=== PATIENT | male | born 2000 | race Two or more races ===

== ENCOUNTER 2025-04-19 08:23 | Outpatient (AMB) | payer OTHER, SELFPAY ==
--- NOTE | 2025-04-19 13:06 | MHC.OFFVISWM ---
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: Details: Start time: 1.03pm, End time: 1.53pm ?I spent 45 minutes speaking with the patient on the phone plus an additional 5 minutes reviewing and updating records for a total of 50 minutes HPI Comments Details: Previous weight loss efforts: self diet and exercise Wakes up: 7am, Sleeps: 10pm Breakfast: 9am (oatmeal, fruit salad, cereal) Lunch: 12-2pm (rice, beans, chicken, squash, plantains) Dinner: 5-7pm (same as lunch) Snacks: 4pm (fruit: banana), 7-8pm (crackers, cheese) Exercise: Home stationary bike (no calorie tracking) Beverages: Coffee: 2/wk, Tea: (1-2 cups/d plain), Soda: 1/wk or less, Juice: (2/wk, home made juice), ETOH: none PFSH Medical History (Updated 04/19/25 @ 13:12 by Srinath Schneider MD) Depression Diabetes insipidus Gout Hypothyroidism Morbid obesity Surgical History (Updated 04/01/25 @ 10:58 by Karolina Garcia CMA) Hx of eye surgery Family History (Updated 04/01/25 @ 10:08 by Karolina Garcia CMA) Mother No problems noted. Father Family history unknown Social History (Updated 04/01/25 @ 10:08 by Karolina Garcia CMA) Alcohol intake: never Patient Tobacco Use Status: Never used Tobacco Physical Exam Vital Signs: BMI result Body Mass Index 51.5 Telehealth Telehealth Telehealth Platform: Telephone Location of provider rendering services: practice address Location of patient: address on file Patient Identification confirmed using: Name, : Yes Telehealth method: voice only Patient verbally consented to treatment: Yes Patient verbally consented to billing insurance company: Yes Patient informed of any privacy concerns related to visit: Yes Minutes spent on Phone/Video with Pt.: 50 Assessment & Plan Assessment & Plan (1) Morbid obesity: Code(s): E66.01 - Morbid (severe) obesity due to excess calories Category: Medical Plan: 1.? Plan for lap sleeve gastrectomy. If diaphragmatic or ventral hernias are present at time of surgery, these will be repaired laparoscopically as well. I emphasized the importance of close follow-up, adherence to instructions and good communication. The surgery does not replace the need to change your lifestlyle which is the cause of the obesity problem. The surgery provides the motivation to try again to change your lifestyle, it reduces the appetite and make the transition to a better lifestyle easier and doubles the amount of weight you would lose compared to doing the lifestyle change without the surgery. You will need to be on a liquid diet with protein shakes for 2 weeks before surgery to maximize weight loss and boost your nutritional status to recover better from surgery and also for the first two weeks after surgery to let the stomach heal before we introduce other foods. After the first 2 weeks we will introduce protein bars and soft foods like scrambled eggs, cottage cheese and yogurt and after the 6th week will introduce meat, fish and cooked vegetables in small amounts. Over time you should be able to eat everything in small amounts. Side effects like nausea, vomiting, heartburn or abdominal pain are not common in the practice unless you are not following in the practice. This operation requires lifetime commitment to following in our practice and communication with me. You will much less weight and experience side effects if you don?t communicate or not following in the practice. Complications are rare and in our practice is about 1/10 of the national average. However, you can develop bleeding that may require transfusion (hasn?t happened for year in the practice), you may from complications (we did not have any deaths in the practice) and infections. Infections are usually a result of breakdown in communication or not understanding or following directions correctly. They are difficult to treat, they can happen during the first 6 weeks, they may require to be in the hospital for weeks or even months, not being able to eat by mouth and you may have drains and surgeries to try and correct the issue. Other risks and complications include possible conversion to an open procedure, leaks, small bowel obstruction, blood clots, cardiac, or pulmonary complications, as terminal operations supervisor complications such as ulcers, insufficient weight loss and vitamin deficiencies. 2. Nutritional counseling. Start with one premade PREMIER protein (buy at [employer] or [employer]) shake (8oz of Premier NOT the whole bottle) at 8am-10am, one protein bar (Fit Crunch protein bar, buy at [employer], or [employer]) at 11am-1pm, another premade PREMIER protein shake (mix 4oz of Premier mixed with 4oz low fat unsweetened almond milk each) at 2pm-4pm, dinner at 5pm (12 forks of protein and 12 forks of salad/vegetables) and another Fit Crunch protein bar at 7pm-9pm. So you do 2 protein shakes, 2 protein bars and one meal per day. Meal to include lean meat (beef, fish, pork, turkey, chicken), or Frisian yogurt, or egg whites, or beans with a salad with olive oil and fruits (berries, pears, apples, kiwi). Avoid salt, breads, potatoes, rice, pasta, desserts. 3. Each shake would be drunk slowly, like coffee in a period of 2 hours. 4. Cut each bar in 4 pieces and eat each piece in 30min ?to make each bar last 2 hours. 5. I emphasized the importance of measuring accurately the food portion and measure it when serving the food in plate 6. The meal portions include 12 full-size forks of meat and 12 full-size forks of salad. You always eat the meat portion but you can replace up to 6 forks for salad/vegetables with rice, potatoes or pasta, or a fruit ?if you like. The less you do it the better weight loss will be. 7. One full-size fork is what it can be scooped on the fork without falling aside and not what can be bit with the fork. Use regular forks like those you find in a typical restaurant. 8.? Please buy the body composition scale we discussed and send me weight measurements as soon as possible and then once a week. Always include your diet and exercise plan. 9. Start walking outside daily, tracking calories with a goal of 300 calories per day, daily. Goal is to burn 2000 calories per week on exercise, which means either 300 calories daily, or 400 calories 5 days per week, or 500 calories 4 days per week, or 650 calories 3 days per week. 10. The best choice would be to purchase a stationary bike, elliptical or treadmill at home that can track calories. Let me know if you do so I can give you an exercise plan. 11. Goal is to lose at least 1.5-2lbs per week 12. Goal to lose 10% of your weight before surgery, which is about 30lbs. Ultimate weight goal: 279lbs before surgery 13. Please follow the diet plan exactly without any change. If you don't like something about the plan or you feel hungry you need to communicate with me so I can help you revise the plan. You should not change the plan yourself 14. To be scheduled for EGD to assess the stomach's anatomy. The possibility of biopsies was discussed. Patient needs to avoid use of NSAIDs and aspirin for 1 week prior to EGD. You must be on liquids only the day before your endoscopy. Risks of perforation and bleeding was discussed with the patient. This will be an outpatient procedure with IV sedation. Orders: Orders Insulin Today E03.9 - Hypothyroidism, unspecified, E23.2 - Diabetes insipidus, E66.01 - Morbid (severe) obesity due to excess calories, M10.9 - Gout, unspecified H Pylori Breath Test Today E03.9 - Hypothyroidism, unspecified, E23.2 - Diabetes insipidus, E66.01 - Morbid (severe) obesity due to excess calories, M10.9 - Gout, unspecified Complete Blood Count Auto Diff Today E03.9 - Hypothyroidism, unspecified, E23.2 - Diabetes insipidus, E66.01 - Morbid (severe) obesity due to excess calories, M10.9 - Gout, unspecified IRON PROFILE Today E03.9 - Hypothyroidism, unspecified, E23.2 - Diabetes insipidus, E66.01 - Morbid (severe) obesity due to excess calories, M10.9 - Gout, unspecified Comprehensive Met. Panel Today E03.9 - Hypothyroidism, unspecified, E23.2 - Diabetes insipidus, E66.01 - Morbid (severe) obesity due to excess calories, M10.9 - Gout, unspecified US abdomen comp w elastography Today E03.9 - Hypothyroidism, unspecified, E23.2 - Diabetes insipidus, E66.01 - Morbid (severe) obesity due to excess calories, M10.9 - Gout, unspecified XR chest 2V Today E03.9 - Hypothyroidism, unspecified, E23.2 - Diabetes insipidus, E66.01 - Morbid (severe) obesity due to excess calories, M10.9 - Gout, unspecified FL upper GI w air Today E03.9 - Hypothyroidism, unspecified, E23.2 - Diabetes insipidus, E66.01 - Morbid (severe) obesity due to excess calories, M10.9 - Gout, unspecified Hemoglobin A1c Today E03.9 - Hypothyroidism, unspecified, E23.2 - Diabetes insipidus, E66.01 - Morbid (severe) obesity due to excess calories, M10.9 - Gout, unspecified Lipid Panel Today E03.9 - Hypothyroidism, unspecified, E23.2 - Diabetes insipidus, E66.01 - Morbid (severe) obesity due to excess calories, M10.9 - Gout, unspecified Vitamin B12 and Folate Today E03.9 - Hypothyroidism, unspecified, E23.2 - Diabetes insipidus, E66.01 - Morbid (severe) obesity due to excess calories, M10.9 - Gout, unspecified Zinc Today E03.9 - Hypothyroidism, unspecified, E23.2 - Diabetes insipidus, E66.01 - Morbid (severe) obesity due to excess calories, M10.9 - Gout, unspecified C Reactive Protein Today E03.9 - Hypothyroidism, unspecified, E23.2 - Diabetes insipidus, E66.01 - Morbid (severe) obesity due to excess calories, M10.9 - Gout, unspecified Vitamin B1 Today E03.9 - Hypothyroidism, unspecified, E23.2 - Diabetes insipidus, E66.01 - Morbid (severe) obesity due to excess calories, M10.9 - Gout, unspecified Vitamin A Today E03.9 - Hypothyroidism, unspecified, E23.2 - Diabetes insipidus, E66.01 - Morbid (severe) obesity due to excess calories, M10.9 - Gout, unspecified TSH reflex Free T4 Today E03.9 - Hypothyroidism, unspecified, E23.2 - Diabetes insipidus, E66.01 - Morbid (severe) obesity due to excess calories, M10.9 - Gout, unspecified Ferritin Today E03.9 - Hypothyroidism, unspecified, E23.2 - Diabetes insipidus, E66.01 - Morbid (severe) obesity due to excess calories, M10.9 - Gout, unspecified Vitamin D 25-OH Total Today E03.9 - Hypothyroidism, unspecified, E23.2 - Diabetes insipidus, E66.01 - Morbid (severe) obesity due to excess calories, M10.9 - Gout, unspecified ECG 12 lead EKG Today E03.9 - Hypothyroidism, unspecified, E23.2 - Diabetes insipidus, E66.01 - Morbid (severe) obesity due to excess calories, M10.9 - Gout, unspecified Referrals Behavioral Health Referral E03.9 - Hypothyroidism, unspecified, E23.2 - Diabetes insipidus, E66.01 - Morbid (severe) obesity due to excess calories, M10.9 - Gout, unspecified Nutrition/Dietitian Referral E03.9 - Hypothyroidism, unspecified, E23.2 - Diabetes insipidus, E66.01 - Morbid (severe) obesity due to excess calories, M10.9 - Gout, unspecified
[2025-04-19 13:19] VITALS: BMI 51.5
== END 2025-04-19 13:53 | disposition home or self-care (01) ==
LOC: HO.HBS 08:23
PROVIDERS: PCP Family Medicine; Visit Provider Surgery
DX: E66.01 Morbid (severe) obesity due to excess calories (principal)
CPT/HCPCS: 99204

== ENCOUNTER 2025-05-02 07:35 | Outpatient (REF) | payer OTHER, SELFPAY ==
--- NOTE | ~2025-05-02 | XR_ITS ---
EXAMINATION: XR CHEST 2 VIEWS HISTORY: E66.01 - Morbid (severe) obesity due to excess calories COMPARISON: There are no prior studies available for comparison. FINDINGS: PA and lateral views of the chest are submitted. The lungs are expanded and clear. There is no pleural effusion, pneumothorax, or pulmonary vascular congestion. The heart is normal in size. The bones are intact. XR/XR chest 2V IMPRESSION: Clear lungs. Electronically signed by: Zeb Mercer MD 05/02/2025 08:26 AM EDT
--- NOTE | 2025-05-02 07:44 | ECG_ITS ---
Test Reason : e66.01 Blood Pressure : */* mmHG Vent. Rate : 101 BPM Atrial Rate : 101 BPM P-R Int : 140 ms QRS Dur : 82 ms QT Int : 334 ms P-R-T Axes : 30 5 57 degrees QTcB Int : 433 ms Sinus tachycardia Inferior infarct , age undetermined Abnormal ECG No previous ECGs available Referred By: Srinath Schneider Electronically Signed By: MINGO CARRASCO MD
[2025-05-02 08:46] LABS: Hematocrit 51.3 % (42.0-52.0); Hemoglobin 16.1 g/dl (14.0-18.0); Imm Gran Abs Auto 0.04 X10*3/uL (0.00-0.03); Imm Gran Pct Auto 0.4 % (0.0-0.4); Lymphocytes Absolute Auto 5.7 X10*3/uL (1.2-4.9); MANUAL DIFF FLAG SCAN; Mean Corpuscular HGB Conc 31.4 g/dl (31.0-36.0); Mean Corpuscular Hemoglobin 28.9 pg (27.0-33.0); Mean Corpuscular Volume 91.9 fL (80.0-98.0); NRBC Abs Auto 0.000 X10*3/uL (0.0-0.012); NRBC Pct Auto 0.0 /100WBC (0.0-0.2); Platelet Count 369 X10*3/uL (160-400); Red Blood Count 5.58 X10*6/uL (4.60-5.80); SCAN SMEAR FLAG 1; White Blood Count 9.8 X10*3/uL (4.8-10.8)
[2025-05-02 09:20] LABS: Albumin Level 4.2 g/dL (3.5-5.0); Alkaline Phosphatase 113 U/L (39-117); Anion Gap 18 (12-20); Aspartate Amino Transferase 61 U/L (5-37); Blood Urea Nitrogen 12 mg/dL (9-16); Calcium 10.2 mg/dL (8.4-10.2); Carbon Dioxide 22 mmol/L (22-29); Chloride 115 mmol/L (96-108); Cholesterol 306 mg/dL (<200); Estimated Glomerular Filt Rate > 60; HDL Cholesterol 30 mg/dL (>40); Iron 73 mcg/dL (45-160); Percent Iron Saturation 21 % (15-50); Potassium 4.0 mmol/L (3.3-5.1); Sodium 151 mmol/L (135-145); Total Iron Binding Capacity 343 mcg/dL (228-428); Total Protein 7.7 g/dL (6.5-8.0); Triglycerides 1175 mg/dL (<150); Unsaturated Iron Binding 270 ug/dL
[2025-05-02 09:36] LABS: Alanine Aminotransferase 56 U/L (0-40)
[2025-05-02 09:47] LABS: Ferritin 149 ng/mL (20-250)
[2025-05-02 09:51] LABS: Folate 12.0 ng/mL (> or = 4.0); Vitamin B12 360 pg/mL (200-900)
[2025-05-02 10:24] LABS: Free T4 (Free Thyroxine) 0.60 ng/dL (0.71-1.85)
== END 2025-05-02 07:36 | disposition home or self-care (01) ==
LOC: HO.XRAY 07:35
PROVIDERS: Visit Provider Surgery
DX: E66.01 Morbid (severe) obesity due to excess calories (principal); E03.9 Hypothyroidism, unspecified; E23.2 Diabetes insipidus; M10.9 Gout, unspecified
CPT/HCPCS: 36415; 71046; 80053; 80061; 82306; 82607; 82728; 82746; 83036; 83525; 83540; 84425; 84439; 84443; 84590; 84630; 85025; 86140; 93005

== ENCOUNTER → 2025-05-02 07:44 | Outpatient (BNV) | payer OTHER, SELFPAY | PROVIDERS: Visit Provider Internal Medicine Cardiovascular Disease | DX: R00.0 Tachycardia, unspecified (principal) | CPT/HCPCS: 93010 ==

== ENCOUNTER → 2025-05-02 08:12 | Outpatient (BNV) | payer OTHER, SELFPAY | PROVIDERS: Visit Provider Radiology Diagnostic Radiology | DX: E66.01 Morbid (severe) obesity due to excess calories (principal); Z68.43 Body mass index [BMI] 50.0-59.9, adult | CPT/HCPCS: 71046 ==

== ENCOUNTER 2025-06-18 07:28 | Day surgery (SDC) | payer OTHER, SELFPAY ==
--- OUTSIDE RECORDS SUMMARY | 2025-05-01 23:59 | XMS_ITS | Continuity of Care Document ---
Author Organization [facility] Address [address] [place] [address]- Care Team Providers Care Surgical Garment Inspector Name Role Phone Bette PEREZ, John Primary Care Physician [phone] [id number] Date(s): 04/01/25 - 05/01/[address] [address]- Encounter Type: Triage Allergies, Adverse Reactions, Alerts No Known Allergies Immunizations Given and Recorded Vaccine Date Status Refusal Reason [id number] 12y+ bivalent booster vax 05/22/22 Recorded SARS-CoV-2 mRNA ([id number]) vax 12/11/21 Given SARS-CoV-2 (COVID-19) mRNA BNT-162b2 vac 01/06/21 Recorded SARS-CoV-2 (COVID-19) mRNA BNT-162b2 vac 12/16/20 Recorded influenza virus vaccine, inactivated 07/03/18 Give n influenza virus vaccine, inactivated 05/18/17 Give n influenza virus vaccine, inactivated 05/19/16 Give n influenza virus vaccine, inactivated 03/27/15 Give n influenza virus vaccine, inactivated 03/06/14 Give n influenza virus vaccine, inactivated 05/01/13 Give n Meningococcal Polysaccharide Vaccine 05/19/16 Give n Human Papillomavirus Vaccine 03/06/14 Given Human Papillomavirus Vaccine 05/01/13 Given Human Papillomavirus Vaccine 1 02/17/12 Given Adacel (Tdap) (oldterm) 2 06/26/10 Given Menactra (oldterm) 3 06/26/10 Given Influenza Inactive (IM) (oldterm) 4 03/31/10 Given 1Admin Note: vis given 2Admin Note: vis 05/28/08 3Admin Note: vis 08/07/07 4Admin Note: vis Medications acetaminophen 500 mg oral tablet 2 tablet = 1,000 mg, By Mouth, Every 6 hours, PRN for pain, 5 Refills, Maintenance, 08/03/22 9:35:00AM EST, Tablet, Partial fill upon patient request if the prescription is for a schedule II opioid drug. Start Date: 08/03/22 Status: Ordered Medication Dispense Status: Completed Total Allowed Fills: 1 Fills Dispensed: 0 Adult Extra Large Home blood pressure monitor Adult Extra Large Home blood pressure monitor, See Instructions, # 1 each, Refills 0, Tot. Refills 0, Maintenance, To use for home blood pressure monitoring once a day, 2-3x a week. Dx: Stage 1 Hypertension,ICD I10 Duration of Use: 89 years BMI 53.99. Fax to [facility] [phone], 06/28/22 2:00:00 PM EST, Supply Start Date: 06/28/22 Status: Ordered Medication Dispense Status: Completed Quantity: 1.0 Unit: each Total Allowed Fills: 1 Fills Dispensed: 0 allopurinol 100 mg oral tablet 100 mg, 1, tablet, By Mouth, Daily, Follow up with primary care provider for dosing titration, # 90tablet, Refills 0, Tot. Refills 0, Maintenance, 04/09/25 2:16:00 PM EDT, Route to Pharmacy Electronically, [facility] #[id number], Partial fill upon patient request if the prescription is for a schedule II opioid drug., 165, cm, 03/14/25 11:45:00 EDT, Height, 144.794, kg, 03/01/25 17:17:00 EDT,Dry Weight Start Date: 04/09/25 Stop Date: 07/08/25 Status: Ordered Medication Dispense Status: Completed Quantity: 90.0 Unit: tablet Total Allowed Fills: 1 Fills Dispensed: 0 colchicine 0.6 mg oral tablet 1, tablet, By Mouth, 2 times a day, # 6 tablet, Refills 2, Tot. Refills 2, Maintenance, 04/09/25 2:17:00 PM EDT, Route to Pharmacy Electronically, [facility] #[id number], 165, cm, 03/14/25 11:45:00 EDT, Height, 144.794, kg, 03/01/25 17:17:00 EDT, Dry Weight Start Date: 04/09/25 Stop Date: 04/18/25 Status: Ordered Medication Dispense Status: Completed Quantity: 6.0 Unit: tablet Total Allowed Fills: 3 Fills Dispensed: 0 Compression Stockings See Instructions, # 3 pack/packet, Refills 3, Tot. Refills 3, Maintenance, surgical, calf length 20-30 mm Hg DX:I87.2 Venous insufficiency, 11/26/21 11:17:00 AM EDT, Compound Start Date: 11/26/21 Status: Ordered Medication Dispense Status: Completed Quantity: 3.0 Unit: pack/packet Total Allowed Fills: 4 Fills Dispensed: 0 desmopressin 0.1 mg oral tablet See Instructions, take 1.5 tablets in AM and 1.5 tablet in the evening, # 90 tablet, 6 Refills, Maintenance, 03/14/25 12:18:00 PM EDT, [facility] #[id number], Partial fill upon patient request if the prescription is for a schedule II opioid drug., 165, cm, 03/14/25 11:45:00 EDT, Height, 144.794,kg, 03/01/25 17:17:00 EDT, Dry Weight Start Date: 03/14/25 Status: Ordered Medication Dispense Status: Completed Quantity: 90.0 Unit: tablet Total Allowed Fills: 7 Fills Dispensed: 0 levothyroxine 125 mcg (0.125 mg) oral tablet 1 tablet = 125 mcg, By Mouth, Daily, # 30 tablet, 6 Refills, Maintenance, 03/14/25 12:18:00 PM EDT, Tablet, [facility] #[id number], Partial fill upon patient request if the prescription is for a schedule II opioid drug., 165, cm, 03/14/25 11:45:00 EDT, Height, 144.794, kg, 03/01/25 17:17:00 EDT,Dry Weight Start Date: 03/14/25 Status: Ordered Medication Dispense Status: Completed Quantity: 30.0 Unit: tablet Total Allowed Fills: 7 Fills Dispensed: 0 Shower Bar See Instructions, # 1 each, Maintenance, To use when showering to avoid falls Dx: Bilateral plantarfasciitis ICD M72.2, Unsteadiness on feet ICD R26. 81 Duration of use: 89 years Height 165 cm (65 inches) Weight 147 kg (324 lbs) BMI 53.99 Fax to [facility] [address] [place] [address], 06/28/22 1:53:00 PM EST, Supply Start Date: 06/28/22 Status: Ordered Medication Dispense Status: Completed Quantity: 1.0 Unit: each Total Allowed Fills: 1 Fills Dispensed: 0 Shower Chair See Instructions, # 1 each, Maintenance, To use when showering to avoid falls Dx: Bilateral plantarfasciitis ICD M72.2, Unsteadiness on feet ICD R26. 81 Duration of use: 89 years Height 165 cm (65 inches) Weight 147 kg (324 lbs) BMI 53.99 Fax to [facility] [address] [place] [address], 06/28/22 1:53:00 PM EST, Supply Start Date: 06/28/22 Status: Ordered Medication Dispense Status: Completed Quantity: 1.0 Unit: each Total Allowed Fills: 1 Fills Dispensed: 0 Shower Mat Shower Mat, See Instructions, # 1 each, Refills 0, Tot. Refills 0, Maintenance, To use when showering to avoid falls Dx: Bilateral plantar fasciitis ICD M72.2, Unsteadiness on feet ICD R26. 81 Duration of use: 89 years Height 165 cm (65 inches) Weight 147 kg (324 lbs) BMI 53.99 Fax to [facility] [address] [place] [address], 06/28/22 1:53:00 PMEST, Supply Start Date: 06/28/22 Status: Ordered Medication Dispense Status: Completed Quantity: 1.0 Unit: each Total Allowed Fills: 1 Fills Dispensed: 0 Tall Adult Adjustable Crutches Tall Adult Adjustable Crutches, See Instructions, # 2 each, Refills 1, Tot. Refills 1, Maintenance,To use for stability when walking with severe chronic pain. Dx: Bilateral plantar fasciitis (ICD M72.2) and chronic low back pain (ICD M54.50) Duration of use: 89 years Height 165 cm (65 inches) Weight 147 kg (324 lbs) BMI 53.99 Fax to [facility] [address] [place] [id number], 12/13/23 11:56:00 AM EDT, Supply Start Date: 12/13/23 Status: Ordered Medication Dispense Status: Completed Quantity: 2.0 Unit: each Total Allowed Fills: 2 Fills Dispensed: 0 Problem List Condition Confirmation Course Effective Dates Status Health Status Informant Abnormal glucose level Confirmed Active Abnormal eye movements Confirmed Active Morbid obesity with BMI of 50.0-59.9, adult Confirmed Active Chronic hypernatremia Confirmed Active Chronic low back pain Confirmed Active Constipation Confirmed Active Left leg DVT Confirmed Active Diabetes insipidus Confirmed Active Encopresis Confirmed Active Chronic foot pain Confirmed Active Gout Confirmed Active 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 History of gout Confirmed Active Hypertriglyceridemia Confirmed Active Hypothyroidism Confirmed Active Recurrent Acute kidney injury Confirmed Active Moderate major depression Confirmed Active Plantar fasciitis, bilateral Confirmed Active Prediabetes Confirmed Active Pure hypercholesterolemia Confirmed Active Severe obesity Confirmed Active Tachycardia Confirmed Active Social History Social History Type Response Smoking Status Never (less than 100 in lifetime) entered on: 06/28/22 Sex Sex Representation Male (finding) Patient Care team information Care Team Personnel Name: Lee Ann Mooney RN Position: [facility] AMB Nurse Member Role: Primary Care Nurse Name: Jarocho Leon RN Position: [facility] RN Member Role: Primary Care Nurse Name: Ivette Escalera RN Position: [facility] RN Member Role: Primary Care Nurse Name: Estrellita Faust RN Position: [facility] RN Member Role: Primary Care Nurse Name: John Amos MD Position: [facility] Resident Member Role: PCP Address: [address] [place] [address] Telecom: Name: Theresa Marin RN Position: S RN Member Role: Primary Care Nurse Name: Nicole Turcios RN Position: S RN Member Role: Primary Care Nurse Name: Petar Adkins MD Position: S Outreach Member Role: Lifetime Consulting Physician Address: [address] [facility] [place], [place] [address] Telecom: Name: Ada Taylor RN Position: S RN Member Role: Primary Care Nurse Name: Emeterio Ulrich RN Position: [facility] OB RN Member Role: Primary Care Nurse Name: Sasha Eaton RN Position: S RN Member Role: Primary Care Nurse Care Team Related Persons Name: EZEQUIEL PARKS Name: NIESHA PARKS Name: NIESHA PARKS Insurance Providers Guarantor name: [employer] Plan Information #: [address] [facility] Payer Identifier: NA Member Number: [id number] Group Number: [id number] Subscriber Identifier: MALOU Relationship to Subscriber: self Coverage Type: Medicaid (Managed Care) Coverage Verification Date: NA Telecom: NA Address: NA
--- OUTSIDE RECORDS SUMMARY | 2025-05-07 07:54 | XMS_ITS | Clinical Summary ---
Author Organization [facility] Facility Address [address] [place] [address], [place] [address] Care Team Providers Care Can Sealer Name Role Phone Linda Torres Primary Care Provider Allergies No known active allergies Medications amoxicillin-cla vulanate (AUGMENTIN) 875-125 MG per tablet Take 1 tablet by mouth in the morning and 1 tablet in the evening. 04/20/2022 Active colchicine 0.6 MG tablet Take 0.6 mg by mouth 02/26/2021 Active naproxen (EC NAPROSYN) 500 MG EC tablet Take 500 mg by mouth in the morning and 500 mg in the evening. 06/09/2022 Active desmopressin (DDAVP) 0.1 MG tablet TAKE 1 TABLET(100 MCG) BY MOUTH EVERY NIGHT 30 tablet 5 02/25/2023 Active Resolved Problems Problem Noted Date Diagnosed Date Resolved Date Glucose level outside reference range 06/30/2022 06/30/2022 Abnormal ocular motility 06/30/2022 Body mass index 40+ - severely obese 06/30/2022 06/30/2022 Acute embolism and thrombosi s of unspecified deep veins of unspecified lower extremity 06/30/2022 06/30/2022 Encopresis 06/30/2022 06/30/2022 Foot pain 06/30/2022 06/30/2022 Plantar fasciitis 06/30/2022 06/30/2022 Pure hypercholesterolemia 06/30/2022 Severe obesity 06/30/2022 06/30/2022 Tachycardia 06/30/2022 06/30/2022 Immunizations Immunization Administration Dates Next Due HPV, Quadrivalent 03/06/2014,05/01/2013,02/17/20 12 Influenza Whole 03/31/2010 Influenza, Unspecified 07/03/2018,2016,05/19/2016,03/27/2015,,05/01/2013 Meningococcal MCV4P 06/26/2010 Meningococcal Polysaccharide 05/19/2016 Pfizer SARS-COV-2 12/11/2021,01/06/2021,12/17/19 21 SARS-CoV-2, Unspecified 05/22/2022 Tdap 06/26/2010 Family History Medical History Relation Comments Hypertension Maternal Grandmother Coronary artery disease Paternal Grandfather Relation Status Comments Maternal Grandmother Paternal Grandfather Social History Tobacco Use Types Packs/Day Years Used Date Smoking Tobacco: Never Passive Smoke Exposure: Never Smokeless Tobacco: Never Tobacco Cessation:Counseling Given: No Alcohol Use Standard Drinks/Week Comments Never 0 (1 standard drink = 0.6 oz pur e alcohol) Sex and Gender Information Value Date Recorded Sex Assigned at Not on file Legal Sex Male 1:53 PM EST Gender Identity Not on file Sexual Orientation Not on file Last Filed Vital Signs Vital Sign Reading Time Taken Comments Blood Pressure - - Pulse 117 06/30/2022 4:45 PM EST Temperature - - Respiratory Rate - - Oxygen Saturation - - Inhaled Oxygen Concentration - - Weight 145 kg (319 lb) 06/30/2022 4:45 PM EST Height - - Body Mass Index - - Plan of Treatment Health Maintenance Due Date Last Done Comments Hepatitis B Vaccine (1 of 3 - 19+ 3-dose series) 2018 Pneumococcal Vaccine: Peds ( 0 to 5 Years) and At-Risk Patients (6 to 49 Years) (1 of 2 - PCV) 2018 Influenza Vaccine (#1) 2025 8, 05/18/2017, 05/19/2016, Additional history exists Insurance [facility] Care Teams Can Sealer Relationship Specialty Start Date End Date Linda Torres [facility] [place] [address] PCP - General Internal Medicine 06/29/22
[2025-06-18 07:53] VITALS: BMI 53.2
[2025-06-18 08:01] VITALS: BP 149/97; PULSE 126; RESP 20; TEMP 37.2; O2SAT 94
[2025-06-18] MEDS: Lactated Ringers 1,000 ML 100 ML IVCONT (08:04)
--- NOTE | 2025-06-18 08:27 | HO.ANESPROP2 ---
Documented by User: Angela Pandya NP 06/14/25 09:24 HPI - Anesthesia Eval Consult details Narrative: 25yo M for Upper Endoscopy Diabetes Insipidus: Follows [facility] endocrine. On DDAVP 0.15 BID. Recent [facility] Labs have been WNL, but 04/2025 [facility] labs with Bw=530. Will recheck DOS BMI 51.5 PMFSH Active Problems Active Problems: All Active Problems Depression (Acute) Diabetes insipidus (Acute) Gout (Acute) Hypothyroidism (Acute) Morbid obesity (Acute) Past Medical History Medical History (Updated 04/19/25 @ 13:12 by Srinath Schneider MD) Depression Diabetes insipidus Gout Hypothyroidism Morbid obesity Family History Family History (Updated 04/01/25 @ 10:08 by Karolina Garcia CMA) Mother No problems noted. Father Family history unknown Surgical History Surgical History (Updated 04/01/25 @ 10:58 by Karolina Garcia CMA) Hx of eye surgery Social History Social History (Updated 04/01/25 @ 10:08 by Karolina Garcia CMA) Alcohol intake: never Patient Tobacco Use Status: Never used Tobacco Use of substances other than those prescribed or required for medical reasons: No Advance Directives: No Advance Directives Information Provided: Yes Meds Allergies Allergy/AdvReac Type Severity Reaction Status Date / Time No Known Allergies Allergy Verified 04/19/25 13:06 Home Medications ?Medication ?Instructions ?Recorded ?Confirmed ?Last Taken ?Type acetaminophen 500 mg capsule 500 mg PO Q6H PRN 04/01/25 04/19/25 Unknown History allopurinol 100 mg tablet 200 mg PO DAILY 04/01/25 04/19/25 Unknown History colchicine 0.6 mg tablet 0.6 mg PO BID 04/01/25 04/19/25 Unknown History desmopressin 0.1 mg tablet 0.15 mg PO BID 04/01/25 04/19/25 Unknown History levothyroxine 125 mcg tablet 125 mcg PO DAILY 04/01/25 04/19/25 Unknown History Exam Pertinent Lab Results Pertinent Lab Results: Laboratory Tests 05/02/25 08:07 WBC 9.8 Hgb 16.1 Hct 51.3 Plt Count 369 Sodium 151 H Potassium 4.0 Chloride 115 H Carbon Dioxide 22 BUN 12 Creatinine 0.77 Assessment and Plan Assessment Anesthesia Assessment: Chart Reviewed Documented by User: Sujey Meraz DO 06/18/25 08:29 HPI - Anesthesia Eval Consult details Narrative: 25yo M for Upper Endoscopy Diabetes Insipidus: Follows [facility] endocrine. On DDAVP 0.15 BID. Recent [facility] Labs have been WNL, but 04/2025 [facility] labs with Zq=971. Will recheck DOS BMI 53.3 [facility] Past Medical History Medical History (Updated 04/19/25 @ 13:12 by Srinath Schneider MD) Depression Diabetes insipidus Gout Hypothyroidism Morbid obesity Family History Family History (Updated 04/01/25 @ 10:08 by Karolina Garcia CMA) Mother No problems noted. Father Family history unknown Family history of problems with anesthesia: No Surgical History Surgical History (Updated 04/01/25 @ 10:58 by Karolina Garcia CMA) Hx of eye surgery History of Problems with Anesthesia: No Social History Social History (Updated 04/01/25 @ 10:08 by Karolina Garcia CMA) Alcohol intake: never Patient Tobacco Use Status: Never used Tobacco Use of substances other than those prescribed or required for medical reasons: No Advance Directives: No Advance Directives Information Provided: Yes Meds Allergies Allergy/AdvReac Type Severity Reaction Status Date / Time No Known Allergies Allergy Verified 04/19/25 13:06 Home Medications ?Medication ?Instructions ?Recorded ?Confirmed ?Last Taken ?Type acetaminophen 500 mg capsule 500 mg PO Q6H PRN 04/01/25 04/19/25 Unknown History allopurinol 100 mg tablet 200 mg PO DAILY 04/01/25 04/19/25 Unknown History colchicine 0.6 mg tablet 0.6 mg PO BID 04/01/25 04/19/25 Unknown History desmopressin 0.1 mg tablet 0.15 mg PO BID 04/01/25 04/19/25 Unknown History levothyroxine 125 mcg tablet 125 mcg PO DAILY 04/01/25 04/19/25 Unknown History Exam Exam Date and Time: 06/18/25824 Height,Weight and Vital Signs: Height 5 ft 5 in Weight 145.15 kg Vital Signs Temperature 98.9 F 06/18/25 08:01 Pulse Rate 126 H 06/18/25 08:01 Respiratory Rate 20 06/18/25 08:01 Blood Pressure 149/97 H 06/18/25 08:01 Pulse Oximetry 94 06/18/25 08:01 Oxygen Delivery Method Room Air 06/18/25 08:01 Temperature 98.9 F 06/18/25 08:01 Pulse Rate 126 H 06/18/25 08:01 Respiratory Rate 20 06/18/25 08:01 Blood Pressure 149/97 H 06/18/25 08:01 Pulse Oximetry 94 06/18/25 08:01 Oxygen Delivery Method Room Air 06/18/25 08:01 Airway Mallampati Class: III TM Dist: >3cm Neck ROM: Full Loose/Missing/Broken Teeth: Yes (a few missing teeth and broken teeth) Heart: S1S2 Lungs: Diminished breath sounds Assessment and Plan Assessment Anesthesia Assessment: Anesthesia Plan Discussed and Chart Reviewed Final Anesthetic Review Family History of Problems with Anesthesia: No History of Problems with Anesthesia: No NPO: Yes ASA Class: III Final Preanesthetic Review: No Changes in Pt Med Stat, Meds/Allgs Chart Reviewed, Consent Obtained/Reviewed and Anes Risks/Benef Reviewed Patient Risk: Intermediate Procedure Risk: Low Anesthetic Plan Anesthetic Plan: MAC: and Agree w/ Assess. and Plan Disposition: Standard PACU
--- NOTE | 2025-06-18 08:42 | MHC.SHP ---
Pre-Procedural Eval Section A - 24 Hr Update-Section A only Date of Service: 06/18/25 The patient is an INPATIENT: No The patient has been examined within 24 hours of the surgical procedure. The History & Physical has been completed within 30 days and I have reviewed it.: No Section B - Complete if H&P > 30 days Chief Complaint: Morbid (severe) obesity due to excess calories Relevant Family History (Specify if Yes): No Relevant Social History: None Present Medications: None Medical History: No relevant PMH History of Previous Operations: No relevant previous surgery Allergies: Allergies Allergy/AdvReac Type Severity Reaction Status Date / Time No Known Allergies Allergy Verified 04/19/25 13:06 Review of Systems Sugical H&P ROS: Negative: Constitution, Cardiovascular, Respiratory, Neurological, Psychiatric, Hem-Onc, Allergic/Immunologic, Gastrointestinal, Genitourinary, Musculoskeletal, Integumentary, Endocrine and Eyes/Ears/Nose/Throat Exam Surgical H&P Exam: Normal: HEENT, Normal: Heart, Normal: Lungs, Normal: Extremities, Normal: Skin and Normal: Neurological and Not Evaluated: Abdomen (rash and odor under pannus) Plan Diagnosis/Plan: Unchanged (EGD to assess the stomach's anatomy. Risks of bleeding and perforation were discussed with the patient and he is in agreement with the plan.) I have reviewed the history and physical and performed a pertinent physical examination on my patient. No changes have occurred unless specified. Time Spent With Patient Time: Total time managing care of this patient today ____ minutes.
--- NOTE | 2025-06-18 09:06 | P.BOP_ITS ---
Brief Operative Note Date of Service: 06/18/25 Pre-op diagnosis: Morbid obesity Post-op diagnosis: same (1) Gastric ulcers, 2) gastritis) Procedure: PROCEDURE DATE: 06/18/2025 PREOPERATIVE DIAGNOSIS: Morbid obesity POSTOPERATIVE DIAGNOSIS: ?Same as above. 1) Gastric ulcers, 2) gastritis PROCEDURE: [id number] with biopsies Surgeon: ?Jayant Schneider M.D.. Ph.D. Vice President Biostatistics: None ? Anesthesia: IV sedation Estimated blood loss: ?Minimal FINDINGS AND PROCEDURE: ? OPERATIVE INDICATIONS: ?The patient is a 25 year old male known to me who is interested in bariatric surgery. Based on this information I recommended an upper endoscopy to evaluate the patient's symptoms. Risks and complications of the surgery were discussed with the patient in advance particularly the possibility of perforation or bleeding that may require surgical intervention. The patient understood the risks and was in agreement with the plan. ? PROCEDURE: After informed consent was obtained by the patient, the patient was ?transferred to the Operating Room and was placed in the supine position.? After successful induction of IV sedation, a mouth block was inserted and the patient was placed in the left lateral decubitus position. An upper endoscopy was performed next, the oropharynx and esophagus appeared within the normal limits. There was no hiatal hernia. The z-line was smooth. Two biopsies were obtained from the distal esophagus 2-3 cm proximal to the GE junction and two additional biopsies from the GE junction. The stomach was entered and it appeared to be of normal size. There was significant gastritis throughout the stomach but mostly in antrum. There was no stricture but there were several superficial ulcers near the prepylori region. A biopsy was obtained from the gastric fundus and the antrum. No significant bleeding was noted from any of the biopsy sites. Retroflexion of the scope confirmed the presence of a normal GE junction. The scope was then advanced into the duodenum u to te 4th portion, which appeared to be normal as well. At that point the duodenum ?and the stomach were decompressed and the scope was withdrawn from the patient's mouth. The patient extubated and was transferred in stable condition to the Recovery Room for further care. I was present and performed all steps of the procedure. There were no residents to assist with this case. Jayant Schneider M.D., Ph.D. Surgeon: Srinath Schneider MD Anesthesia: MAC Was an Vice President Biostatistics used for this Procedure?: No Estimated blood loss (mL): 0 IV fluids (mL): 400 Urine output (mL): 0 (No Barnett to record output) Pathology: other (1) antrum x1, 2) fundus x1, 3) GE junction x2, 4) distal esophagus x2) Condition: stable Disposition: PACU
[2025-06-18 09:09] VITALS: BP 112/67; PULSE 111; RESP 16; TEMP 37.8; O2SAT 94
[2025-06-18 09:24] VITALS: BP 120/79; PULSE 108; RESP 20; O2SAT 94
[2025-06-18 09:39] VITALS: BP 124/77; PULSE 116; RESP 14; TEMP 38.2; O2SAT 98
[2025-06-18 09:53] VITALS: TEMP 37.6
== END 2025-06-18 10:15 | disposition home or self-care (01) ==
PROVIDERS: Visit Provider Surgery
PROC: 0DJ08ZZ Inspection of Upper Intestinal Tract, Via Natural or Artificial Opening Endoscopic (ICD-10-PCS; CPT 43235; principal; 2025-06-18 08:40)
DX: E66.01 Morbid (severe) obesity due to excess calories (principal); Z68.43 Body mass index [BMI] 50.0-59.9, adult; K29.50 Unspecified chronic gastritis without bleeding; K25.9 Gastric ulcer, unspecified as acute or chronic, without hemorrhage or perforation; E23.2 Diabetes insipidus; M10.9 Gout, unspecified; E03.9 Hypothyroidism, unspecified; F32.A Depression, unspecified; Z79.899 Other long term (current) drug therapy
CPT/HCPCS: 43239; 88305; 88313; 88342; J2704

== ENCOUNTER → 2025-06-18 07:28 | Outpatient (BNV) | payer OTHER, SELFPAY | PROVIDERS: Visit Provider Surgery | DX: E66.01 Morbid (severe) obesity due to excess calories (principal); Z68.43 Body mass index [BMI] 50.0-59.9, adult; K25.9 Gastric ulcer, unspecified as acute or chronic, without hemorrhage or perforation; K29.70 Gastritis, unspecified, without bleeding | CPT/HCPCS: 43239 ==